=== PATIENT | male | born 1985 | race Two or more races ===

== ENCOUNTER 2018-06-05 12:03 | Emergency (ER) | payer MEDICAID ==
[~2018-06-05] VITALS: Ht 170.2 cm; Wt 81.2 kg
--- NOTE | 2018-06-05 12:21 | NUR ---
PT PRESENTS TO ER C/O DIFFUSE ABD PAIN, BURNING LIKE, S/P ETOH HAMMONDS THIS WEEKEND WITH ASSOCIATED NAUSEA. RESP EVEN UNLABORED. SKIN WARM DRY. DENIES CP. IN ER BED 10.
[2018-06-05] MEDS ORDERED: MAG HYDROX/AL HYDROX/SIMETH 30 ML UDC PO ONE (12:30)
[2018-06-05] MEDS ORDERED: LIDOCAINE VISCOUS 2% UD 15 ML UDC MM ONE (12:30)
[2018-06-05] MEDS ORDERED: ONDANSETRON HCL/PF 4 MG/2 ML VIAL IVP ONE (12:30)
[2018-06-05 12:32] LABS: BASOPHILS % (AUTO) 0.4 % (0.0-2.0); EOSINOPHILS % (AUTO) 1.6 % (0.0-6.0); HEMATOCRIT 48 % (39-51); HEMOGLOBIN 16.8 g/dL (13.5-17.5); LYMPHOCYTES # (AUTO) 2.2 /CMM (0.8-4.8); LYMPHOCYTES % (AUTO) 29.2 % (20.0-44.0); MEAN CORPUSCULAR HGB CONC 35 g/dl (31.0-36.0); MEAN CORPUSCULAR VOLUME 91 fL (80-96); MONOCYTES # (AUTO) 0.4 /CMM (0.1-1.30); MONOCYTES % (AUTO) 5.9 % (2.0-12.0); NEUTROPHILS # (AUTO) 4.8 /CMM (1.8-8.9); NEUTROPHILS % (AUTO) 62.9 % (43.0-81.0); PLATELET COUNT (AUTO) 288 /CMM (150-450); WHITE BLOOD COUNT (AUTO) 7.6 K/uL (4.3-11.0)
--- NOTE | 2018-06-05 12:33 | NUR ---
CLARIFIED ORDERS WITH DR KUMAR; PER , SWITCH ZOFRAN FROM INJECTABLE TO ODT
[2018-06-05] MEDS ORDERED: LIDOCAINE VISCOUS 2% UD 15 ML UDC ONE (12:35)
[2018-06-05] MEDS ORDERED: MAG HYDROX/AL HYDROX/SIMETH 30 ML UDC ONE (12:35)
[2018-06-05] MEDS ORDERED: ONDANSETRON 4 MG TAB.RAPDIS ONE (12:36)
[2018-06-05 12:43] LABS: CALCIUM, SERUM 9.9 mg/dL (8.5-10.1); CREATININE 0.9 mg/dL (0.6-1.3); POTASSIUM 4.5 mmol/L (3.5-5.1)
[2018-06-05 12:48] LABS: ALBUMIN 4.2 g/dL (3.4-5.0); BILIRUBIN,DIRECT 0.2 mg/dL (0.0-0.2); TOTAL PROTEIN, SERUM 8.6 g/dL (6.4-8.2)
[2018-06-05] MEDS ORDERED: ONDANSETRON 4 MG TAB.RAPDIS SL ONE (13:00)
[2018-06-05 14:05] VITALS: BP 137/97
--- NOTE | 2018-06-05 14:05 | NUR ---
Patient discharged to home in stable condition. Written and verbal after care instructions given. Patient verbalizes understanding of instruction.
== END 2018-06-05 14:06 | disposition home or self-care (01) ==
LOC: ER 12:03
DX: K70.9 Alcoholic liver disease, unspecified (principal); K76.0 Fatty (change of) liver, not elsewhere classified; R74.0 Nonspecific elevation of levels of transaminase and lactic acid dehydrogenase [LDH]; Z60.2 Problems related to living alone
CPT/HCPCS: 36415; 76705; 80048; 80076; 83690; 85025; 99284; A4606; Q0162; Z7610

== ENCOUNTER 2018-08-27 09:32 | Emergency (ER) | payer MEDICAID, OTHER ==
[~2018-08-27] VITALS: Ht 170.2 cm; Wt 81.2 kg
[2018-08-27 09:48] VITALS: BP 145/74
== END 2018-08-27 10:31 | disposition home or self-care (01) ==
LOC: ER 09:34
DX: G62.9 Polyneuropathy, unspecified (principal); F10.10 Alcohol abuse, uncomplicated; Y90.9 Presence of alcohol in blood, level not specified; Z60.2 Problems related to living alone
CPT/HCPCS: Z7502

== ENCOUNTER 2019-07-30 09:08 | Emergency (ER) | payer OTHER ==
[~2019-07-30] VITALS: Ht 170.2 cm; Wt 86.2 kg
[2019-07-30 09:14] VITALS: BP 143/101
--- NOTE | 2019-07-30 09:18 | NUR ---
DR MORENO AT BEDSIDE FOR EVAL.
== END 2019-07-30 09:25 | disposition home or self-care (01) ==
LOC: ER 09:09
DX: M62.830 Muscle spasm of back (principal)

== ENCOUNTER 2020-01-14 17:57 | Emergency (ER) | payer OTHER ==
[~2020-01-14] VITALS: Ht 170.2 cm; Wt 86.2 kg
--- NOTE | 2020-01-14 18:17 | NUR ---
PATIENT STATES "NOTICED BLOOD IN MY VOMIT THIS AFTERNOON", ALSO CONCERNED ABOUT LOWER ABD PAIN PATIENT FELT AROUND 4PM. 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 TO ER BED 9, HOOKED TO MONITOR AND POX, CHANGED TO HOSP GOWN, WARM BLANKET PROVIDED, PATIENT AAO x 4, BREATHING EVEN AND UNLABORED, NOT IN RESPIRATORY DISTRESS. AWAITING MD ANTONIO.
[2020-01-14] MEDS ORDERED: LIDOCAINE VISCOUS 2% UD 15 ML UDC ONE (18:44)
[2020-01-14] MEDS ORDERED: MAG HYDROX/AL HYDROX/SIMETH 30 ML UDC ONE (18:44)
[2020-01-14] MEDS ORDERED: ONDANSETRON 4 MG TAB.RAPDIS ONE (18:44)
--- NOTE | 2020-01-14 18:48 | NUR ---
COMPUTER SECURITY MANAGER AT BEDSIDE FOR JOSE RAUL
[2020-01-14] MEDS ORDERED: ONDANSETRON 4 MG TAB.RAPDIS SL ONE (19:00)
[2020-01-14] MEDS ORDERED: LIDOCAINE VISCOUS 2% UD 15 ML UDC MM ONE (19:00)
[2020-01-14] MEDS ORDERED: MAG HYDROX/AL HYDROX/SIMETH 30 ML UDC PO ONE (19:00)
[2020-01-14 19:05] LABS: BASOPHILS % (AUTO) 0.3 % (0.0-2.0); EOSINOPHILS % (AUTO) 2.6 % (0.0-6.0); HEMATOCRIT 48 % (39-51); LYMPHOCYTES # (AUTO) 2.5 /CMM (0.8-4.8); LYMPHOCYTES % (AUTO) 21.6 % (20.0-44.0); MEAN CORPUSCULAR HGB CONC 33 g/dl (31.0-36.0); MEAN CORPUSCULAR VOLUME 94 fL (80-96); MONOCYTES # (AUTO) 0.8 /CMM (0.1-1.30); MONOCYTES % (AUTO) 7.1 % (2.0-12.0); NEUTROPHILS % (AUTO) 68.4 % (43.0-81.0); PLATELET COUNT (AUTO) 233 /CMM (150-450); RED BLOOD CELL COUNT(AUTO) 5.14 MIL/uL (4.5-6.0); WHITE BLOOD COUNT (AUTO) 11.8 K/uL (4.3-11.0)
--- NOTE | 2020-01-14 19:07 | NUR ---
ENDORSEMENT GIVEN TO [facility] FOR SHALINI
--- NOTE | 2020-01-14 19:15 | NUR ---
REPORT RECEIVED FROM ROSALES SANCHEZ FOR SHALINI
[2020-01-14 19:16] LABS: POTASSIUM 3.9 mmol/L (3.5-5.1)
--- NOTE | 2020-01-14 19:21 | NUR ---
PT STATES "I FELT BETTER AFTER THE MEDICATIONS GIVEN". PT AAOX4, RESPIRATIONS EVEN AND UNLABORED ON RA W/ NAD NOTED. PT CONNECTED TO THE MONITOR AND POX. CALL LIGHT WITHIN REACH. WILL CONTINUE TO MONITOR ACCORDINGLY.
[2020-01-14 19:30] LABS: ALBUMIN 4.3 g/dL (3.4-5.0); BILIRUBIN,DIRECT 0.2 mg/dL (0.0-0.2); BILIRUBIN,TOTAL 0.7 mg/dL (0.2-1.0); TOTAL PROTEIN, SERUM 9.5 g/dL (6.4-8.2)
[2020-01-14 19:48] VITALS: BP 141/84
--- NOTE | 2020-01-14 19:48 | NUR ---
Patient discharged to home in stable condition. Written and verbal after care instructions given. Patient verbalizes understanding of instruction.
== END 2020-01-14 19:49 | disposition home or self-care (01) ==
LOC: ER 18:01
DX: K29.70 Gastritis, unspecified, without bleeding (principal); F10.10 Alcohol abuse, uncomplicated; K70.9 Alcoholic liver disease, unspecified; K21.9 Gastro-esophageal reflux disease without esophagitis; Y90.9 Presence of alcohol in blood, level not specified; Z60.2 Problems related to living alone
CPT/HCPCS: 36415; 76705; 80048; 80076; 83690; 85025; 99284; Q0162

== ENCOUNTER 2020-10-30 20:49 | Emergency (ER) | payer OTHER ==
[~2020-10-30] VITALS: Ht 170.2 cm; Wt 86.2 kg
[2020-10-30 20:51] VITALS: BP 132/68
[2020-10-30] MEDS ORDERED: DOXY100C2 PO (21:00)
== END 2020-10-30 21:05 | disposition home or self-care (01) ==
LOC: ER 20:52
DX: S20.461A Insect bite (nonvenomous) of right back wall of thorax, initial encounter (principal); K21.9 Gastro-esophageal reflux disease without esophagitis; Z60.2 Problems related to living alone; W57.XXXA Bitten or stung by nonvenomous insect and other nonvenomous arthropods, initial encounter; Y93.89 Activity, other specified; Y92.89 Other specified places as the place of occurrence of the external cause; Y99.8 Other external cause status

== ENCOUNTER 2021-01-28 18:20 | Emergency (ER) | payer OTHER ==
[~2021-01-28] VITALS: Ht 170.2 cm; Wt 82.6 kg
[~2021-01-28 18:20] MED LIST: DOXY100C2 PO
--- NOTE | 2021-01-28 18:33 | NUR ---
PT AMBULATORY TO ER BED 10 C/O DIFFUSE ABDOMINAL PAIN, R FLANK PAIN, CRAMPING HURTS TO BREATH SYMPTOMS X 2 WEEKS. YESTERDAY STARTED NAUSEA AND VOMITING EVERYTIME HE EATS SOMETHING. PT ADMITS TO DRINKING BEER (6 PACK) EVERY NIGHT TO HELP HIM SLEEP. STABLE VITALS. AWAITING MD ANTONIO.
--- NOTE | 2021-01-28 18:58 | NUR ---
STARTED RAC G 20, BLOOD SPECIMEN COLLECTED AND SENT TO THE LAB. THE LINE IS SALINE LOCKED.
--- NOTE | 2021-01-28 19:00 | NUR ---
THE PATIENT IS TAKEN TO CT
--- NOTE | 2021-01-28 19:09 | NUR ---
THE PATIENT IS BACK FROM CT
--- NOTE | 2021-01-28 19:29 | NUR ---
urine collected and sent to lab
[2021-01-28] MEDS ORDERED: ONDANSETRON HCL/PF 4 MG/2 ML VIAL ONE ×2 (19:32→19:37)
[2021-01-28] MEDS: IV NS 0.9% 1,000 ML BAG IV ONE (19:33)
[2021-01-28] MEDS: ONDANSETRON HCL/PF - ER 4 MG/2 ML VIAL IV ONE (19:34)
--- NOTE | 2021-01-28 19:34 | NUR ---
REPORT GIVEN TO NURSE BECKER
[2021-01-28 19:41] LABS: BASOPHILS % (AUTO) 0.3 % (0.0-2.0); EOSINOPHILS % (AUTO) 4.2 % (0.0-6.0); HEMATOCRIT 47 % (39-51); HEMOGLOBIN 16.1 g/dL (13.5-17.5); LYMPHOCYTES # (AUTO) 1.5 K/uL (0.8-4.8); LYMPHOCYTES % (AUTO) 17.5 % (20.0-44.0); MEAN CORPUSCULAR HGB CONC 34 g/dl (31.0-36.0); MEAN CORPUSCULAR VOLUME 88 fL (80-96); MONOCYTES # (AUTO) 0.8 K/uL (0.1-1.30); MONOCYTES % (AUTO) 9.2 % (2.0-12.0); NEUTROPHILS # (AUTO) 5.7 K/uL (1.8-8.9); NEUTROPHILS % (AUTO) 68.8 % (43.0-81.0); PLATELET COUNT (AUTO) 144 K/uL (150-450); RED BLOOD CELL COUNT(AUTO) 5.37 MIL/uL (4.5-6.0); WHITE BLOOD COUNT (AUTO) 8.3 K/uL (4.3-11.0)
[2021-01-28 19:55] LABS: CALCIUM, SERUM 9.4 mg/dL (8.5-10.1); CREATININE 0.8 mg/dL (0.6-1.3); POTASSIUM 3.7 mmol/L (3.5-5.1)
[2021-01-28 20:17] LABS: BILIRUBIN,URINE NEGATIVE (NEGATIVE); COLOR,URINE YELLOW (YELLOW); LEUKOCYTE ESTERASE ,URINE NEGATIVE (NEGATIVE); NITRITE, URINE NEGATIVE (NEGATIVE); PROTEIN,URINE NEGATIVE (NEGATIVE); UGLUCOSE NEGATIVE (NEGATIVE)
[2021-01-28 20:25] LABS: BACTERIA,URINE None seen /HPF (None Seen); RBC,URINE 0-2 /HPF (0-2); SQUAMOUS EPITHELIAL CELL,UR 0-2 /HPF (None Seen); WBC,URINE 0-2 /HPF (0-3)
[2021-01-28] MEDS ORDERED: HYDROCODONE/APAP 5/325MG TABLET ONE (20:59)
[2021-01-28] MEDS ORDERED: AZIT250T13 PO (21:02)
[2021-01-28] MEDS ORDERED: ONDA4TAB5 PO (21:02)
[2021-01-28] MEDS: HYDROCODONE/APAP 5/325MG TABLET PO ONE (21:03)
--- NOTE | 2021-01-28 21:12 | NUR ---
Patient discharged to home in stable condition. Written and verbal after care instructions given. Patient verbalizes understanding of instruction.
[2021-01-28 21:26] VITALS: BP 138/85
== END 2021-01-28 21:12 | disposition home or self-care (01) ==
LOC: ER 18:24
DX: S50.11XA Contusion of right forearm, initial encounter (principal); J18.9 Pneumonia, unspecified organism; R91.1 Solitary pulmonary nodule; R14.0 Abdominal distension (gaseous); R11.2 Nausea with vomiting, unspecified; F10.10 Alcohol abuse, uncomplicated; K21.9 Gastro-esophageal reflux disease without esophagitis; Y90.9 Presence of alcohol in blood, level not specified; Z60.2 Problems related to living alone; Z79.899 Other long term (current) drug therapy; X58.XXXA Exposure to other specified factors, initial encounter; Y93.89 Activity, other specified; Y92.89 Other specified places as the place of occurrence of the external cause; Y99.8 Other external cause status
CPT/HCPCS: 36415; 71045; 74176; 80048; 81001; 83690; 85025; 85730; 96361; 96374; 99285; J2405 ×2

== ENCOUNTER 2021-04-09 09:20 | Emergency (ER) | payer OTHER ==
[~2021-04-09] VITALS: Ht 170.2 cm; Wt 80.3 kg
[~2021-04-09 09:20] MED LIST changes: +AZIT250T13 PO; +ONDA4TAB5 PO
[2021-04-09 09:28] VITALS: BP 142/86
[2021-04-09] MEDS ORDERED: DEXAMETHASONE SOLN 5 MG/5 ML UDC ONE (10:20)
--- NOTE | 2021-04-09 10:20 | NUR ---
DR DAVILA AT BEDSIDE
[2021-04-09] MEDS ORDERED: PENI500T PO (10:27)
[2021-04-09] MEDS ORDERED: DEXAMETHASONE SOLN 5 MG/5 ML UDC PO ONE (10:30)
--- NOTE | 2021-04-09 10:44 | NUR ---
Patient discharged to home in stable condition. Written and verbal after care instructions given. Patient verbalizes understanding of instruction.
== END 2021-04-09 10:45 | disposition home or self-care (01) ==
LOC: ER 09:22
DX: J02.0 Streptococcal pharyngitis (principal); K21.9 Gastro-esophageal reflux disease without esophagitis; Z60.2 Problems related to living alone
CPT/HCPCS: 99283; J8540

== ENCOUNTER 2021-06-18 08:21 | Emergency (ER) | payer OTHER ==
[~2021-06-18] VITALS: Ht 170.2 cm; Wt 81.6 kg
[~2021-06-18 08:21] MED LIST changes: +PENI500T PO
[2021-06-18 08:39] VITALS: BP 146/101
--- NOTE | 2021-06-18 08:45 | NUR ---
WALK IN FROM HOME C/O FORHEAD ABSCESS, PT PICKED SCAB AND UNABLE TO STOP BLEED.
[2021-06-18] MEDS ORDERED: SILVER NITRATE APPLICATOR 1 EA BOX ONE (08:48)
--- NOTE | 2021-06-18 08:55 | NUR ---
FRUIT II FARMWORKER AT BEDSIDE FOR WOUND IRRIGATION
--- NOTE | 2021-06-18 09:13 | NUR ---
Patient discharged to home in stable condition. Written and verbal after care instructions given. Patient verbalizes understanding of instruction.
== END 2021-06-18 09:15 | disposition home or self-care (01) ==
LOC: ER 08:24
DX: L98.9 Disorder of the skin and subcutaneous tissue, unspecified (principal); K21.9 Gastro-esophageal reflux disease without esophagitis; Z79.2 Long term (current) use of antibiotics; Z79.83 Long term (current) use of bisphosphonates; Z79.899 Other long term (current) drug therapy; Z60.2 Problems related to living alone
CPT/HCPCS: 99281; A6403

== ENCOUNTER 2021-09-25 10:15 | Emergency (ER) | payer OTHER ==
[~2021-09-25] VITALS: Ht 170.2 cm; Wt 83.0 kg
[2021-09-25 10:19] VITALS: BP 145/82
[2021-09-25] MEDS ORDERED: OSEL75CA PO (10:27)
--- NOTE | 2021-09-25 10:30 | NUR ---
Patient discharged to home in stable condition. Written and verbal after care instructions given. Patient verbalizes understanding of instruction.
== END 2021-09-25 10:31 | disposition home or self-care (01) ==
LOC: ER 10:19
DX: J06.9 Acute upper respiratory infection, unspecified (principal); K21.9 Gastro-esophageal reflux disease without esophagitis; Z60.2 Problems related to living alone; Z79.899 Other long term (current) drug therapy

== ENCOUNTER 2022-08-29 08:38 | Emergency (ER) | payer OTHER ==
[~2022-08-29] VITALS: Ht 170.2 cm; Wt 77.1 kg
[2022-08-29 08:38] VITALS: BP 153/102
[~2022-08-29 08:38] MED LIST changes: +OSEL75CA PO
--- NOTE | 2022-08-29 08:38 | NUR ---
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 STATES THAT HE DOESNT HAVE ANY PAIN BUT STINGING DICOMFORT. HAS CONCERNS BECAUSE IT BECAME PUPRLE TODAY. ABLE TO MOVE HIS FINGERS. AWAITING MD ANTONIO.
--- NOTE | 2022-08-29 08:50 | NUR ---
DR DENG AT BEDSIDE
--- NOTE | 2022-08-29 09:08 | NUR ---
Patient discharged to home in stable condition. Written and verbal after care instructions given. Patient verbalizes understanding of instruction.
== END 2022-08-29 09:09 | disposition home or self-care (01) ==
LOC: ER 08:38
DX: S60.052A Contusion of left little finger without damage to nail, initial encounter (principal); K21.9 Gastro-esophageal reflux disease without esophagitis; Z60.2 Problems related to living alone; Z79.899 Other long term (current) drug therapy; W20.8XXA Other cause of strike by thrown, projected or falling object, initial encounter; Y93.89 Activity, other specified; Y92.89 Other specified places as the place of occurrence of the external cause; Y99.0 Civilian activity done for income or pay
CPT/HCPCS: 73140-TC